=== PATIENT | male | born 1975 | race Caucasian/White ===

== ENCOUNTER 2021-12-06 12:15 | Outpatient (CLI) | payer BC, SELFPAY ==
[2021-12-06 13:26] LABS: SARS-CoV-2 Ag Negative (Negative)
[2021-12-06 13:27] LABS: Influenza Control Valid (Valid)
== END 2021-12-06 12:16 | disposition home or self-care (01) ==
LOC: CHSLAB 12:19
PROVIDERS: PCP Internal Medicine; Visit Provider Internal Medicine
DX: J06.9 Acute upper respiratory infection, unspecified (principal); Z20.822 Contact with and (suspected) exposure to COVID-19
CPT/HCPCS: 87426; 87804; C9803

== ENCOUNTER 2023-01-09 01:09 | Day surgery (SDC) | payer BC, SELFPAY ==
[2023-01-03 15:46] VITALS: BMI 38.4
[2023-01-09 06:21] VITALS: BP 126/71; PULSE 78; RESP 17; TEMP 36; O2SAT 97; BMI 38.7
[2023-01-09] MEDS: LACTATED RINGERS 1,000 ML 150 ML IV CONT (06:34)
--- NOTE | 2023-01-09 06:54 | WPDANESEPPF ---
Anes - Initial Pre Proc Eval Procedure: Operation Date: 01/09/23 07:30 Proposed Procedures p Screening Colonoscopy - Osiel Johnson DO Date/Time: 01/09/23 06:54 Surgeon: Osiel Johnson DO Pre Op Diagnosis: neoplasm screening Patient Data Age: 47 Gender: M Height: 1.8 m Weight: 126.2 kg Last Vital Signs Temp 36.0 C L 01/09/23 06:21 Pulse 78 01/09/23 06:21 Resp 17 01/09/23 06:21 BP 126/71 01/09/23 06:21 Pulse Ox 97 01/09/23 06:21 O2 Del Method Room Air 01/09/23 06:21 Allergies Allergy/AdvReac Type Severity Reaction Status Date / Time No Known Allergies Allergy Verified 01/09/23 06:18 Home Medications Medication Instructions Recorded Confirmed Type alprazolam 1 mg tablet 1 mg PO PRN PRN Anxiety 01/03/23 01/09/23 History atenolol 100 mg tablet 100 mg PO DAILY 01/03/23 01/09/23 History losartan 100 1 tablet PO DAILY 01/03/23 01/09/23 History mg-hydrochlorothiazide 25 mg tablet omeprazole magnesium 20 mg 20 mg PO DAILY PRN Acid Reflux 01/03/23 01/09/23 History tablet,delayed release (Prilosec OTC) Patient hx anesthesia problems: none Family hx anesthesia problems: none Results Review: All pre-operative results and documents have been reviewed as part of the pre-operative evaluation. [facility] Past Medical History Medical History Anxiety HTN (hypertension) [place] (obstructive sleep apnea) Social History Social History Smoking packs per day: 1 Smoking cigarettes per day: 20.0 Years smoked: 20 Smoking pack-years: 20.00 Smoking status: Former smoker Tobacco type: cigarettes Alcohol intake: current Drinks per week: 24 Substance use: never Living arrangements: with family Spiritual care concerns: No Anes - Eval Final PreProcedure Day of Procedure 01/09/23 06:54 Patient weight: obese Heart: regular rate and rhythm Lungs: clear to auscultation Airway: Mallampati scale class II Neurological: alert and oriented Last oral intake: >/= 8 hours ASA classification: III Emergent: no Anesthetic plan: proceed Anesthesia type and monitoring: general GIVS and standard monitoring Results Review: All pre-operative results and documents have been reviewed as part of the pre-operative evaluation. Informed Consent: The patient's anesthetic plan and its attendant risks and benefits were discussed with the patient/family/POA. Questions were solicited and answers provided to the satisfaction of the patient/family/POA.
--- NOTE | 2023-01-09 07:40 | PM.IMHP ---
H&P: HPI History of Present Illness Date/Time: 01/09/23 07:40 Chief Complaint: fam hx colon cancer Narrative: 47 yo man presents for colonoscopy. His mother had colon cancer. He denies hematochezia or melena. He has never had colonoscopy before. Review of Systems Review of Systems: All systems reviewed & are unremarkable except as noted in HPI and below Constitutional: Constitutional: Denies chills, Denies fever(s), Denies headache(s) and Denies weight loss Eyes: Eyes: Denies change in vision ENT: Denies dizziness, Denies headache(s), Denies neck mass and Denies throat swelling Cardiovascular: Cardiovascular: Denies chest pain, Denies lightheadedness and Denies dyspnea Respiratory: Respiratory: Denies cough, Denies dyspnea and Denies wheezing Gastrointestinal: Gastrointestinal: Denies abdominal pain, Denies change in bowel habits, Denies nausea and Denies vomiting Genitourinary: Genitourinary: Denies hematuria and Denies dysuria Musculoskeletal: Musculoskeletal: Reports as per HPI Integumentary/Breasts: Skin/Breast: Reports as per HPI Neurologic: Denies dizziness and Denies headache(s) Allergic/Immunologic: Allergic/Immunologic: Denies throat swelling and Denies wheezing [facility] Past Medical History Medical History Anxiety HTN (hypertension) [place] (obstructive sleep apnea) Social History Social History Smoking packs per day: 1 Smoking cigarettes per day: 20.0 Years smoked: 20 Smoking pack-years: 20.00 Smoking status: Former smoker Tobacco type: cigarettes Alcohol intake: current Drinks per week: 24 Substance use: never Living arrangements: with family Spiritual care concerns: No Meds Home Medications and Allergies Home Medications Medication Instructions Recorded Confirmed Type alprazolam 1 mg tablet 1 mg PO PRN PRN Anxiety 01/03/23 01/09/23 History atenolol 100 mg tablet 100 mg PO DAILY 01/03/23 01/09/23 History losartan 100 1 tablet PO DAILY 01/03/23 01/09/23 History mg-hydrochlorothiazide 25 mg tablet omeprazole magnesium 20 mg 20 mg PO DAILY PRN Acid Reflux 01/03/23 01/09/23 History tablet,delayed release (Prilosec OTC) Allergies Allergy/AdvReac Type Severity Reaction Status Date / Time No Known Allergies Allergy Verified 01/09/23 06:18 Vital Signs Vital Signs - 24 hr 01/09/23 06:21 Temperature 36.0 C L Pulse Rate 78 Respiratory Rate 17 Blood Pressure 126/71 Pulse Oximetry 97 Oxygen Delivery Room Air Exam Const: General: no acute distress and alert Orientation/consciousness: patient oriented x3 HENMT: Head: normocephalic and atraumatic Ears: hearing grossly normal bilaterally Face/Nose/Sinus: Normal nares present Mouth: Yes Normal oral and palatal mucosa present Eyes: Periorbital: periorbital findings normal Sclera: sclerae normal EOM: EOMs intact bilaterally Neck: Neck: normal visual inspection, no lymphadenopathy and trachea midline Chest: Chest palpation & inspection: normal inspection of the chest Resp: Effort & Inspection: normal respiratory effort Auscultation: clear to auscultation bilaterally Cardio: Jugular venous distension: no JVD Rate: regular rate Rhythm: regular rhythm Heart sounds: S1 normal heart sound present and S2 normal heart sound present Peripheral pulses: Peripheral pulses 2+ throughout GI: Inspection: normal to inspection GI Palp: Yes Soft to palpation, No Tenderness to palpation present (GI), No Guarding due to palpation present (GI) and No Rebound tenderness present Percussion: Yes normal to percussion Auscultation: normal bowel sounds : General: Yes no CVA tenderness Back/Spine/Pelvis: Back: no CVA tenderness Neuro: General: patient oriented x3, no focal motor deficits and CN's II-XI intact bilaterally Cognition (Neuro): normal cognition Speech: normal speech Motor exam (cory
[2023-01-09 08:12] VITALS: BP 96/62; PULSE 68; RESP 18; O2SAT 97
[2023-01-09 08:22] VITALS: BP 103/58; PULSE 64; O2SAT 98
[2023-01-09 08:32] VITALS: BP 107/58; PULSE 67; RESP 17; O2SAT 96
== END 2023-01-09 08:42 | disposition home or self-care (01) ==
PROVIDERS: PCP Internal Medicine; Visit Provider Surgery
PROC: 0DJD8ZZ Inspection of Lower Intestinal Tract, Via Natural or Artificial Opening Endoscopic (ICD-10-PCS; CPT 45378; principal; 2023-01-09 07:30)
DX: Z12.11 Encounter for screening for malignant neoplasm of colon (principal); K63.5 Polyp of colon; Z80.0 Family history of malignant neoplasm of digestive organs; I10 Essential (primary) hypertension; G47.33 Obstructive sleep apnea (adult) (pediatric); F41.9 Anxiety disorder, unspecified; Z87.891 Personal history of nicotine dependence; E66.9 Obesity, unspecified; Z68.38 Body mass index [BMI] 38.0-38.9, adult
CPT/HCPCS: 45385; 45380; 88305; 88342; J2704; J7120